=== PATIENT | male | born 1975 | race Caucasian/White ===

== ENCOUNTER 2021-08-01 16:41 | Inpatient (IN) | payer BC ==
[~2021-08-01] VITALS: Ht 165.1 cm; Wt 78.9 kg
[~2021-08-01 16:41] MED LIST: ERYTHROMYCIN500 MG PO; HYDROCODONE-AP1 EAC6 PO; LIDOCAINE VISC100 ML TOP; PREDNISONE 20 M20 M1 PO; VALTREX1000 MG PO; VITAMIN B-12500 MCG; VITAMIN D1000 UNI1
[2021-08-01 17:00] VITALS: BP 117/95
[2021-08-01 17:37] LABS: HEMATOCRIT 52.6 % (42.0-52.0); HEMOGLOBIN 18.6 gm/dL (14.0-18.0); MCH 36.3 pg (26.0-34.0); MCHC 35.4 g/dL (28.0-37.0); MCV 102.7 fL (80.0-100.0); MPV 9.3 fl. (7.2-11.1); NUCLEATED RBCS 0 /100WBC; PLATELET COUNT* 167 thou/uL (150-400); RBC 5.12 mil/uL (4.50-6.00); WBC 25.9 thou/uL (4.0-11.0)
[2021-08-01 17:37] LABS: URINE BLOOD NEGATIVE (Negative); URINE CLARITY CLEAR; URINE COLOR DARK YELLOW; URINE GLUCOSE-RANDOM NEGATIVE (Negative); URINE KETONES 1+ (Negative); URINE LEUKOCYTES NEGATIVE (Negative); URINE NITRITE POSITIVE (Negative); URINE PROTEIN 2+ (Negative); URINE SPECIFIC GRAVITY 1.025 (1.005-1.030)
[2021-08-01 17:39] LABS: ICTOTEST (BILI CONFIRMATORY) Positive (Negative); URINE BILIRUBIN 2+ (Negative)
[2021-08-01 17:42] LABS: HYALINE CASTS >10 Many /LPF (None Seen)
[2021-08-01 17:43] LABS: MUCUS 4-6 Moderate strn/LPF (None Seen); SQUAMOUS 0-3 Few /LPF (0-3)
[2021-08-01 17:44] LABS: BACTERIA 1-9 Few /HPF (None Seen); CRYSTALS None Seen /LPF (None Seen); URINE RBC None Seen /HPF (0-2); URINE WBC 0-5 Rare /HPF (0-5)
[2021-08-01 17:46] LABS: CALCIUM 7.8 mg/dL (8.5-10.1)
[2021-08-01 17:47] LABS: POTASSIUM 2.4 mmol/L (3.5-5.1)
[2021-08-01 17:50] LABS: TOTAL BILIRUBIN 2.5 mg/dL (<0.1-1.0); TOTAL PROTEIN 7.3 g/dL (6.4-8.2)
[2021-08-01 18:19] LABS: ABSOLUTE LYMPHOCYTES 0.8 thou/uL (0.8-5.3); ABSOLUTE NEUTROPHILS 24.1 thou/uL (1.6-8.1)
[2021-08-01 18:20] LABS: MACROCYTES 1+; PLATELET ESTIMATE ADEQUATE
[2021-08-01 23:00] VITALS: BP 114/82
[2021-08-02 00:44] LABS: MAGNESIUM 1.8 mg/dL (1.8-2.4)
[2021-08-02 00:45] LABS: POTASSIUM 2.9 mmol/L (3.5-5.1)
[2021-08-02 03:00] VITALS: BP 117/86
[2021-08-02 05:40] LABS: ABSOLUTE BASOPHILS 0.1 thou/uL (0.0-0.2); ABSOLUTE MONOCYTES 1.4 thou/uL (0.0-1.2); ABSOLUTE NEUTROPHILS 24.1 thou/uL (1.6-8.1); BASOPHILS 0.5 %; EOSINOPHILS 0.1 %; HEMATOCRIT 45.3 % (42.0-52.0); LYMPHOCYTES 3.7 %; MCH 36.1 pg (26.0-34.0); MCHC 34.7 g/dL (28.0-37.0); MCV 104.2 fL (80.0-100.0); MONOCYTES 5.1 %; MPV 9.5 fl. (7.2-11.1); NUCLEATED RBCS 0 /100WBC; PLATELET COUNT* 140 thou/uL (150-400); POLYS 90.6 %; RBC 4.35 mil/uL (4.50-6.00); RDW-CV 16.1 % (10.5-14.5); WBC 26.6 thou/uL (4.0-11.0)
[2021-08-02 05:41] LABS: HEMOGLOBIN 15.7 gm/dL (14.0-18.0)
[2021-08-02 05:49] LABS: CREATININE 0.7 mg/dL (0.6-1.3); POTASSIUM 3.2 mmol/L (3.5-5.1)
[2021-08-02 05:54] LABS: ALBUMIN 2.2 g/dL (3.4-5.0); TOTAL BILIRUBIN 1.7 mg/dL (<0.1-1.0); TOTAL PROTEIN 6.1 g/dL (6.4-8.2)
[2021-08-02 07:00] VITALS: BP 137/96
[2021-08-02 11:00] VITALS: BP 141/98
[2021-08-02 12:41] VITALS: BP 141/98
[2021-08-02 12:59] LABS: ALBUMIN 2.2 g/dL (3.4-5.0); CALCIUM 6.9 mg/dL (8.5-10.1); CREATININE 0.7 mg/dL (0.6-1.3); MAGNESIUM 2.3 mg/dL (1.8-2.4); POTASSIUM 3.2 mmol/L (3.5-5.1); TOTAL BILIRUBIN 1.4 mg/dL (<0.1-1.0); TOTAL PROTEIN 6.1 g/dL (6.4-8.2)
[2021-08-02 13:33] VITALS: BP 147/93
--- NOTE | 2021-08-02 14:34 | EKG ---
[place] [address] ELECTROCARDIOGRAM REPORT Name: CORBY YANG III Room: [address] [place] .R.#: [id number] Admission: 08/01/21 Attend Phys: Latha Ferraro, Discharge: Date of : 77 Date of Service: 08/01/21 1806 Report #: [id number] THIS REPORT FOR: //name// [facility] ED Test Date: 2021-08-01 Test Time: 18:06:46 Pat Name: CORBY YANG Department: Room: [facility] Gender: M [employer]ry Finisher: VIRGEN : 1975 Requested By: Marquez Cowan Order Number: [id number] MD: Jeancarlos Mccormack Measurements Intervals [place] Rate: 105 P: 52 AL: 169 QRS: 40 QRSD: 91 T: QT: 399 QTc: 528 Interpretive Statements Sinus tachycardia Probable left atrial enlargement Borderline repolarization abnormality Prolonged QT interval Baseline wander in lead(s) III No previous ECG available for comparison Electronically Signed On 08-02-2021 14:34:00 CDT by Jeancarlos Mccormack [email or web address] <ELECTRONICALLY SIGNED> By: Jeancarlos Mccormack MD, [facility] 08/02/21 1434 1806 1806 Jeancarlos Mccormack MD, [facility] /EPI
[2021-08-02] MEDS ORDERED: ZOLOFT100 MG PO (17:11)
[2021-08-02] MEDS ORDERED: CLONAZEPAM 0.50.5 M1 PO (17:11)
[2021-08-02 20:20] VITALS: BP 136/84
[2021-08-03] VITALS (7 sets, daily range): BP systolic 115–154; BP diastolic 69–106
[2021-08-03 04:38] LABS: HEMATOCRIT 40.6 % (42.0-52.0); HEMOGLOBIN 13.9 gm/dL (14.0-18.0); MCH 35.7 pg (26.0-34.0); MCHC 34.2 g/dL (28.0-37.0); MCV 104.4 fL (80.0-100.0); MPV 9.4 fl. (7.2-11.1); RBC 3.89 mil/uL (4.50-6.00); RDW-CV 15.3 % (10.5-14.5); WBC 24.3 thou/uL (4.0-11.0)
[2021-08-03 05:20] LABS: ALBUMIN 2.1 g/dL (3.4-5.0); CALCIUM 6.9 mg/dL (8.5-10.1); CREATININE 0.6 mg/dL (0.6-1.3); TOTAL BILIRUBIN 1.1 mg/dL (<0.1-1.0); TOTAL PROTEIN 5.9 g/dL (6.4-8.2)
[2021-08-03 05:24] LABS: PREALBUMIN 19.3 mg/dL (18.0-35.7)
[2021-08-03 05:37] LABS: % SATURATION 15 % (20-39); IRON 20 ug/dL (50-175)
[2021-08-04] VITALS: BP 149/86
[2021-08-04 04:21] LABS: HEMOGLOBIN 13.8 gm/dL (14.0-18.0); MCH 35.6 pg (26.0-34.0); MCHC 33.7 g/dL (28.0-37.0); MCV 105.6 fL (80.0-100.0); MPV 9.7 fl. (7.2-11.1); RBC 3.89 mil/uL (4.50-6.00); WBC 20.2 thou/uL (4.0-11.0)
[2021-08-04 04:31] LABS: ALBUMIN 1.9 g/dL (3.4-5.0); CALCIUM 7.1 mg/dL (8.5-10.1); CREATININE 0.5 mg/dL (0.6-1.3); TOTAL BILIRUBIN 0.9 mg/dL (<0.1-1.0); TOTAL PROTEIN 6.1 g/dL (6.4-8.2)
[2021-08-04 04:40] VITALS: BP 160/87
[2021-08-04 08:00] VITALS: BP 145/92
[2021-08-04 12:00] VITALS: BP 156/104
[2021-08-04 17:58] VITALS: BP 148/97
[2021-08-04 20:00] VITALS: BP 147/100
[2021-08-05 00:47] VITALS: BP 158/93
[2021-08-05 04:37] LABS: CALCIUM 7.6 mg/dL (8.5-10.1); CREATININE 0.5 mg/dL (0.6-1.3); HEMOGLOBIN 13.6 gm/dL (14.0-18.0); MCH 35.4 pg (26.0-34.0); MCHC 34.1 g/dL (28.0-37.0); MCV 103.9 fL (80.0-100.0); MPV 9.8 fl. (7.2-11.1); RBC 3.85 mil/uL (4.50-6.00); RDW-CV 15.1 % (10.5-14.5); WBC 18.4 thou/uL (4.0-11.0)
[2021-08-05 05:51] VITALS: BP 161/87
[2021-08-05] MEDS ORDERED: HYDROCODON-ACE1 EAC7 PO (08:59)
[2021-08-05 09:50] VITALS: BP 154/98
[2021-08-06 07:08] LABS: HEPATITIS B SURFACE AG Negative (Negative)
== END 2021-08-05 10:10 | disposition home or self-care (01) | DRG 871 ==
LOC: M.ERS 16:41 → M.TBA-ER 19:37 → M.2W 08-02 12:51
PROVIDERS: Family Medicine; Internal Medicine Gastroenterology; Physician Assistant; ADMIT Internal Medicine; ATTEND Internal Medicine
DX: A41.9 Sepsis, unspecified organism (principal); K85.20 Alcohol induced acute pancreatitis without necrosis or infection; E87.6 Hypokalemia; Z20.822 Contact with and (suspected) exposure to COVID-19; I10 Essential (primary) hypertension; F12.90 Cannabis use, unspecified, uncomplicated; E83.42 Hypomagnesemia; F10.20 Alcohol dependence, uncomplicated; R11.15 Cyclical vomiting syndrome unrelated to migraine; K70.0 Alcoholic fatty liver; K70.11 Alcoholic hepatitis with ascites; D64.9 Anemia, unspecified; Z88.1 Allergy status to other antibiotic agents; Z88.8 Allergy status to other drugs, medicaments and biological substances; Z71.6 Tobacco abuse counseling; Z71.51 Drug abuse counseling and surveillance of drug abuser; Z71.41 Alcohol abuse counseling and surveillance of alcoholic; Z79.899 Other long term (current) drug therapy; Z28.21 Immunization not carried out because of patient refusal